=== PATIENT | female | born 1995 | race Caucasian/White ===

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

== ENCOUNTER → 2017-06-10 | Outpatient (REF) | payer BC | LOC: M LAB REF 20:07 | DX: J02.9 Acute pharyngitis, unspecified (principal) ==

== ENCOUNTER → 2023-11-12 | Outpatient (REF) ==
[~2023-11-12] MED LIST changes: +MONT5TAB7 PO; -SING5CHW23 PO; +TRI-1TAB24 PO; +ZYRT10CA5 PO; -ZYRT10TA2 PO; -[UNRECOGNIZED DRUG - CODE] PO
== END ==
LOC: M LAB LCGH 13:32
PROVIDERS: ATTEND Internal Medicine
DX: Z01.89 Encounter for other specified special examinations (principal)

== ENCOUNTER → 2023-11-12 | Outpatient (CLI) | payer OTHER | LOC: M LAB 13:23 | PROVIDERS: ATTEND Internal Medicine | DX: G03.9 Meningitis, unspecified (principal) ==